=== PATIENT | female | born 1940 | race Caucasian/White ===

== ENCOUNTER 2017-09-03 11:05 | Outpatient (CLI) | payer MEDICARE ==
[~2017-09-03 11:05] MED LIST: ALEN70TA48 PO; ASCO500C15 PO; ATOR40TA PO; BUPR300T54 PO; CHOL200041 PO; DOCU100T PO; ESCI5TAB12 PO; FAMO20TA8 PO; FERR-106 PO; GABA-532 PO; HYDR-565 PO; LISI-604 PO; NEBI10TA2 PO; SOLI10TA2 PO; TIZA4CAP PO
[2017-09-03 11:13] VITALS: BP 145/79
== END 2017-09-03 11:35 | disposition home or self-care (01) ==
LOC: ORTHO 11:05
PROVIDERS: ATTEND Nurse Practitioner Family
DX: S82.64XG Nondisplaced fracture of lateral malleolus of right fibula, subsequent encounter for closed fracture with delayed healing (principal); E11.9 Type 2 diabetes mellitus without complications; E78.00 Pure hypercholesterolemia, unspecified; F32.9 Major depressive disorder, single episode, unspecified; I10 Essential (primary) hypertension; I21.4 Non-ST elevation (NSTEMI) myocardial infarction; I25.10 Atherosclerotic heart disease of native coronary artery without angina pectoris; M79.7 Fibromyalgia; Z86.73 Personal history of transient ischemic attack (TIA), and cerebral infarction without residual deficits; X58.XXXD Exposure to other specified factors, subsequent encounter
CPT/HCPCS: 73610

== ENCOUNTER 2017-10-03 09:58 | Outpatient (CLI) | payer MEDICARE ==
[~2017-10-03 09:58] MED LIST changes: -FERR-106 PO; +FERR325T39 PO
[2017-10-03 09:59] VITALS: BP 112/82
== END 2017-10-03 10:45 | disposition home or self-care (01) ==
LOC: ORTHO 09:58
PROVIDERS: ATTEND Nurse Practitioner Family
DX: S82.64XG Nondisplaced fracture of lateral malleolus of right fibula, subsequent encounter for closed fracture with delayed healing (principal); E11.9 Type 2 diabetes mellitus without complications; E78.00 Pure hypercholesterolemia, unspecified; F32.9 Major depressive disorder, single episode, unspecified; I10 Essential (primary) hypertension; I21.4 Non-ST elevation (NSTEMI) myocardial infarction; I25.10 Atherosclerotic heart disease of native coronary artery without angina pectoris; M79.7 Fibromyalgia; Z86.73 Personal history of transient ischemic attack (TIA), and cerebral infarction without residual deficits; Z88.8 Allergy status to other drugs, medicaments and biological substances; X58.XXXD Exposure to other specified factors, subsequent encounter
CPT/HCPCS: 73610

== ENCOUNTER 2017-11-28 09:05 | Outpatient (CLI) | payer MEDICARE ==
[2017-11-28 09:16] VITALS: BP 188/88
== END 2017-11-28 09:40 | disposition home or self-care (01) ==
LOC: ORTHO 09:05
PROVIDERS: ATTEND Nurse Practitioner Family
DX: S82.64XD Nondisplaced fracture of lateral malleolus of right fibula, subsequent encounter for closed fracture with routine healing (principal); F17.210 Nicotine dependence, cigarettes, uncomplicated; E11.9 Type 2 diabetes mellitus without complications; E78.00 Pure hypercholesterolemia, unspecified; F32.9 Major depressive disorder, single episode, unspecified; I10 Essential (primary) hypertension; I21.4 Non-ST elevation (NSTEMI) myocardial infarction; I25.10 Atherosclerotic heart disease of native coronary artery without angina pectoris; M79.7 Fibromyalgia; Z86.73 Personal history of transient ischemic attack (TIA), and cerebral infarction without residual deficits; Z88.8 Allergy status to other drugs, medicaments and biological substances; X58.XXXD Exposure to other specified factors, subsequent encounter
CPT/HCPCS: 73610; 99213

== ENCOUNTER 2018-05-21 12:53 | Outpatient (CLI) | payer MEDICARE ==
[2018-05-21] MEDS ORDERED: BARIUM SULFATE 340 ML SUSP.RECON***PROCEDURE AREA ONLY**DONT ENTER PO ONE (12:54)
== END 2018-05-21 23:59 | disposition home or self-care (01) ==
LOC: RAD 12:53
PROVIDERS: ATTEND Family Medicine
DX: R13.14 Dysphagia, pharyngoesophageal phase (principal); K21.9 Gastro-esophageal reflux disease without esophagitis; I10 Essential (primary) hypertension; E11.9 Type 2 diabetes mellitus without complications; Z87.891 Personal history of nicotine dependence
CPT/HCPCS: 74230

== ENCOUNTER 2018-09-18 09:36 | Emergency (ER) | payer MEDICARE ==
[~2018-09-18] VITALS: Ht 165.1 cm; Wt 59.0 kg
[~2018-09-18 09:36] MED LIST changes: -ALEN70TA48 PO; +ALEN70TA60 PO; +HYDR-4353 PO; -HYDR-565 PO
[2018-09-18] MEDS ORDERED: normal saline 1000ml 1,000 ML IV ONE (10:09)
[2018-09-18] MEDS ORDERED: normal saline 1000ML IV soln IVB ONE (10:10)
[2018-09-18] MEDS ORDERED: iohexol 300mg/ml 100ml inj. ONE (10:15)
[2018-09-18 10:47] LABS: BASOPHILS % (AUTO) 0.3 % (0-1); EOSINOPHILS # (AUTO) 0.1 X10'3 (0-0.9); EOSINOPHILS % (AUTO) 0.9 % (0-6); HEMATOCRIT 43.3 % (35.0-45.0); HEMOGLOBIN 14.6 g/dl (12.0-16.0); LYMPHOCYTES # (AUTO) 2.5 X10'3 (1.1-4.8); LYMPHOCYTES % (AUTO) 22.6 % (21-51); MEAN CORPUSCULAR HEMOGLOBIN 31.3 PG (27.0-31.0); MEAN CORPUSCULAR HGB CONC 33.8 % (33.0-36.5); MEAN CORPUSCULAR VOLUME 92.4 FL (78-98); MEAN PLATELET VOLUME 8.2 FL (7.4-10.4); MONOCYTES # (AUTO) 0.6 X10'3 (0-0.9); MONOCYTES % (AUTO) 5.5 % (2-12); NEUTROPHILS # (AUTO) 7.9 X10'3 (1.8-7.7); NEUTROPHILS % (AUTO) 70.7 % (42-75); PLATELET COUNT 327 X10'3 (140-440); RED BLOOD COUNT 4.68 X10'6 (4.20-5.60); RED CELL DISTRIBUTION WIDTH 13.9 % (11.5-14.5); WHITE BLOOD COUNT 11.2 X10'3 (4.5-11.0)
[2018-09-18 11:00] LABS: INR 1.1 INR; PARTIAL THROMBOPLASTIN TIME 27 SECONDS (22-32); PROTHROMBIN TIME 11.1 SECONDS (9.0-12.0)
[2018-09-18 11:03] LABS: ALANINE AMINOTRANSFERASE 31 U/L (12-78); ALBUMIN 3.8 G/DL (3.4-5.0); ALBUMIN/GLOBULIN RATIO 0.9 (1.1-1.5); ALKALINE PHOSPHATASE 142 IU/L (46-116); ANION GAP 15 (8-16); ASPARTATE AMINO TRANSFERASE 22 U/L (10-37); BILIRUBIN,TOTAL 0.8 MG/DL (0.1-1.0); BLOOD UREA NITROGEN 21 MG/DL (7-18); BUN/CREATININE RATIO 18.6 (6.6-38.0); CALCIUM 9.7 MG/DL (8.5-10.1); CHLORIDE 101 MMOL/L (99-107); CREATININE 1.13 MG/DL (0.40-0.90); GLUCOSE 138 MG/DL (70-104); POTASSIUM 3.2 MMOL/L (3.5-5.1); SODIUM 141 MMOL/L (135-145); TOTAL CARBON DIOXIDE 24.6 MMOL/L (24-32); TOTAL PROTEIN 8.1 G/DL (6.4-8.2); eGFR 47 ML/MIN
[2018-09-18 11:06] LABS: MAGNESIUM 1.6 MG/DL (1.5-2.4)
[2018-09-18 11:38] VITALS: BP 173/86
[2018-09-18] MEDS ORDERED: acetaminophen 325mg tablet PO ONE (12:00)
--- NOTE | 2018-09-18 12:00 | NUR ---
PT REPORTS 10/10 HEADACHE PAIN, VERBAL ORDER FROM DR HAILE 650MG TYLYEIMY RODRIGUEZ PRIMARY NURSE INFORMED.
[2018-09-18] MEDS ORDERED: normal saline 1000ml 1,000 ML IV SCH (12:24)
[2018-09-18] MEDS ORDERED: acetaminophen 650mg rectal suppository RC PRN (12:25)
[2018-09-18] MEDS ORDERED: magnesium 4gm in 100ml NS 100 ML IV PRN (12:25)
[2018-09-18] MEDS ORDERED: potassium Cl 20 mEq SR tablet PO PRN ×2 (12:25)
[2018-09-18] MEDS ORDERED: magnesium Cl slow-release 64mg tablet PO PRN (12:25)
[2018-09-18] MEDS ORDERED: potassium Cl 40MEQ/NS 500ml 500 ML IV PRN ×2 (12:25)
[2018-09-18] MEDS ORDERED: magnesium 2GM in 50ml NS 50 ML IV PRN (12:25)
[2018-09-18] MEDS ORDERED: morphine 4 MG/ML inj SYRINge IV PRN ×2 (12:25)
[2018-09-18] MEDS ORDERED: ondansetron/PF 4mg/2ml inj IV PRN (12:25)
[2018-09-18] MEDS ORDERED: RABE20TA28 PO (13:29)
[2018-09-18] MEDS ORDERED: ASPI-611 PO (13:29)
[2018-09-18] MEDS ORDERED: DULO60CA64 PO (13:29)
[2018-09-18] MEDS ORDERED: LISI-600 PO (13:29)
[2018-09-18] MEDS ORDERED: CHOL100062 PO (13:29)
[2018-09-18] MEDS ORDERED: AMLO-314 PO (13:29)
[2018-09-18] MEDS ORDERED: OXYC-150 PO (13:33)
[2018-09-19] MEDS ORDERED: K and/or MAG REPLACEMENT MC SCH (08:00)
== END 2018-09-18 14:07 | disposition home or self-care (01) ==
LOC: ER 09:39
DX: C34.91 Malignant neoplasm of unspecified part of right bronchus or lung (principal); E78.00 Pure hypercholesterolemia, unspecified; I10 Essential (primary) hypertension; E11.9 Type 2 diabetes mellitus without complications; Z88.8 Allergy status to other drugs, medicaments and biological substances; Z79.82 Long term (current) use of aspirin; Z79.899 Other long term (current) drug therapy; Z87.891 Personal history of nicotine dependence
CPT/HCPCS: 36415; 71046; 71260; 80053; 83605; 83735; 84484; 85025; 85610; 85730; 87040; 99284; J7030; Q9967